=== PATIENT | male | born 1955 | race Asian ===

== ENCOUNTER 2018-06-17 13:57 | Inpatient (IN) | payer BC ==
[~2018-06-17] VITALS: Ht 177.8 cm; Wt 73.0 kg
[2018-06-17 14:07] VITALS: Ht 177.8 cm; Wt 73.0 kg
[2018-06-17] MEDS ORDERED: APAP500 MG PO (15:44)
[2018-06-17] MEDS ORDERED: ASPIR 8181 MG PO (15:44)
[2018-06-17] MEDS ORDERED: DULCOLAX10 M1 RC (15:45)
[2018-06-17] MEDS ORDERED: FERROUS SULFAT325 M2 PO (15:46)
[2018-06-17] MEDS ORDERED: FLEET ENEMA135 ML RC (15:46)
[2018-06-17] MEDS ORDERED: LOV40I SQ (15:46)
[2018-06-17] MEDS ORDERED: KEPPRA500 MG PO (15:47)
[2018-06-17] MEDS ORDERED: IPRATROPIUM (15:47)
[2018-06-17] MEDS ORDERED: LORAZEPAM0.5 MG PO (15:48)
[2018-06-17] MEDS ORDERED: NORCO1 TA2 PO (15:49)
[2018-06-17] MEDS ORDERED: MILK OF MAGNESIA (15:49)
[2018-06-17] MEDS ORDERED: PERCOCET1 TAB PO (15:50)
[2018-06-17] MEDS ORDERED: PROTONIX40 MG PO (15:50)
[2018-06-17] MEDS ORDERED: PULMICORT0.5 MG/2 M NEB (15:50)
[2018-06-17 15:51] LABS: CALCIUM 7.9 mg/dL (8.5-10.1); CARBON DIOXIDE 24.2 mmol/L (21-32); CHLORIDE SERUM 103 mmol/L (98-107); CREATININE SERUM 0.7 mg/dL (0.7-1.3); GFR1 > 60 mL/min; GLUCOSE SERUM 101 mg/dL (74-106); POTASSIUM SERUM 3.5 mmol/L (3.5-5.1); SODIUM SERUM 139 mmol/L (136-145)
[2018-06-17] MEDS ORDERED: SEROQUEL25 MG PO (15:51)
[2018-06-17] MEDS ORDERED: XOPENEX1.25 MG/3 NEB (15:51)
[2018-06-17 15:55] LABS: ALT/SGPT 25 U/L (16-63); AST/SGOT 178 U/L (15-37); BILIRUBIN TOTAL 2.98 mg/dL (0.20-1.00); PHOSPHOROUS 4.1 mg/dL (2.5-4.9); TOTAL PROTEIN, SERUM 6.8 g/dL (6.4-8.2)
[2018-06-17 15:59] LABS: ALBUMIN 2.4 g/dL (3.4-5.0)
[2018-06-17 16:00] LABS: CHOLESTEROL 224 mg/dL (<200); HDL CHOLESTEROL 18 mg/dL (40-60)
[2018-06-17 16:02] LABS: PLATELET COUNT 121 x10^3mcL (130-400); RED CELL DISTRIBUTION WIDTH 28.7 % (11.5-14.5)
[2018-06-17 16:20] LABS: ALKALINE PHOSPHATASE 1742 U/L (46-116)
[2018-06-17 16:21] LABS: BAND NEUTROPHIL 3 % (0-10); BASOPHIL 0 % (0-2); MONOCYTE 6 % (0-7); SEGMENTED NEUTROPHILS 70 % (37-75)
[2018-06-17 16:22] LABS: rbc morphology (normal/abnorm) ABNORMAL (NORMAL); tear drop cell (dacryocyte) 1+
[2018-06-17 16:23] LABS: ovalocyte/elliptocyte 1+
[2018-06-17 17:07] LABS: T3 TOTAL 0.72 ng/mL
[2018-06-17 17:10] LABS: FREE T4 1.1 ng/dL (0.76-1.46)
[2018-06-17 17:31] LABS: CHOLESTEROL/HDL RATIO 11.9; FREE THYROXINE INDEX 1.5 ug/dL (1.4-4.5); T4(THYROXINE) 4.1 ug/dL (4.7-13.3)
[2018-06-17 17:52] LABS: IRON 180 ug/dL (65-170); TOTAL IRON BINDING CAPACITY 126 ug/dL (250-450)
[2018-06-17 17:59] LABS: RED BLOOD CELLS 2.3 M/mm3 (4.52-5.90)
[2018-06-17 18:35] VITALS: BP 118/62
[2018-06-17] MEDS ORDERED: AZOPT10 ML (18:36)
[2018-06-17 20:00] VITALS: BP 144/89
[2018-06-17 22:59] LABS: BASOPHIL % 0.2 % (0-2)
[2018-06-17 23:01] LABS: PLATELET COUNT 104 x10^3mcL (130-400); RED CELL DISTRIBUTION WIDTH 28.1 % (11.5-14.5)
[2018-06-17 23:02] LABS: rbc morphology (normal/abnorm) ABNORMAL (NORMAL)
[2018-06-18 05:11] VITALS: BP 141/92
[2018-06-18 07:09] LABS: CALCIUM 8.1 mg/dL (8.5-10.1); CARBON DIOXIDE 24.6 mmol/L (21-32); CHLORIDE SERUM 104 mmol/L (98-107); CREATININE SERUM 0.6 mg/dL (0.7-1.3); GFR1 > 60 mL/min; GLUCOSE SERUM 113 mg/dL (74-106); PHOSPHOROUS 3.7 mg/dL (2.5-4.9); POTASSIUM SERUM 3.4 mmol/L (3.5-5.1); SODIUM SERUM 140 mmol/L (136-145)
[2018-06-18 07:30] LABS: PLATELET COUNT 109 x10^3mcL (130-400); RED CELL DISTRIBUTION WIDTH 29.5 % (11.5-14.5)
[2018-06-18 09:18] VITALS: BP 163/97
[2018-06-18 11:35] LABS: BAND NEUTROPHIL 5 % (0-10); BASOPHIL 0 % (0-2); METAMYELOCTE 1 % (0-2); MONOCYTE 9 % (0-7); SEGMENTED NEUTROPHILS 75 % (37-75)
[2018-06-18 11:36] LABS: PLATELET MORPHOLOGY PLATELETS DECREASED; rbc morphology (normal/abnorm) ABNORMAL (NORMAL)
[2018-06-18] MEDS ORDERED: TAGRISSO80 MG PO (11:57)
[2018-06-18 17:03] VITALS: BP 140/75
[2018-06-18 20:42] VITALS: BP 134/91
[2018-06-19] VITALS (8 sets, daily range): BP systolic 129–147; BP diastolic 75–97
[2018-06-19 07:11] LABS: CALCIUM 7.7 mg/dL (8.5-10.1); CARBON DIOXIDE 26.1 mmol/L (21-32); CREATININE SERUM 0.6 mg/dL (0.7-1.3); GFR1 > 60 mL/min; GLUCOSE SERUM 97 mg/dL (74-106)
[2018-06-19 07:25] LABS: CHLORIDE SERUM 102 mmol/L (98-107); POTASSIUM SERUM 3.2 mmol/L (3.5-5.1); SODIUM SERUM 138 mmol/L (136-145)
[2018-06-19 08:36] LABS: BASOPHIL % 0.5 % (0-2)
[2018-06-19 09:50] LABS: PLATELET COUNT 90 x10^3mcL (130-400); RED CELL DISTRIBUTION WIDTH 31.8 % (11.5-14.5)
[2018-06-19 10:31] LABS: rbc morphology (normal/abnorm) ABNORMAL (NORMAL)
[2018-06-19 15:08] LABS: BASOPHIL % 0.4 % (0-2)
[2018-06-19 15:30] LABS: PLATELET COUNT 84 x10^3mcL (130-400); RED CELL DISTRIBUTION WIDTH 31.5 % (11.5-14.5)
[2018-06-19 15:43] LABS: rbc morphology (normal/abnorm) ABNORMAL (NORMAL)
[2018-06-19 19:41] LABS: BASOPHIL % 0.4 % (0-2)
[2018-06-19 20:12] LABS: PLATELET COUNT 71 x10^3mcL (130-400); RED CELL DISTRIBUTION WIDTH 29.3 % (11.5-14.5)
[2018-06-20 05:41] VITALS: BP 142/82
[2018-06-20 06:18] LABS: CALCIUM 7.5 mg/dL (8.5-10.1); CARBON DIOXIDE 27.8 mmol/L (21-32); CHLORIDE SERUM 104 mmol/L (98-107); CREATININE SERUM 0.5 mg/dL (0.7-1.3); GFR1 > 60 mL/min; GLUCOSE SERUM 102 mg/dL (74-106); MAGNESIUM 1.8 mg/dL (1.8-2.4); PHOSPHOROUS 3.5 mg/dL (2.5-4.9); POTASSIUM SERUM 3.2 mmol/L (3.5-5.1); SODIUM SERUM 141 mmol/L (136-145)
[2018-06-20 06:56] LABS: PLATELET COUNT 76 x10^3mcL (130-400); RED CELL DISTRIBUTION WIDTH 29.8 % (11.5-14.5)
[2018-06-20 07:50] VITALS: BP 160/132
[2018-06-20 09:00] VITALS: BP 152/97
[2018-06-20 12:04] VITALS: BP 121/79
[2018-06-20 14:05] LABS: BAND NEUTROPHIL 15 % (0-10); BASOPHIL 0 % (0-2); METAMYELOCTE 2 % (0-2); MONOCYTE 9 % (0-7); MYELOCYTE 3 % (0-2); SEGMENTED NEUTROPHILS 49 % (37-75)
[2018-06-20 14:06] LABS: rbc morphology (normal/abnorm) ABNORMAL (NORMAL)
[2018-06-20 14:07] LABS: PLATELET MORPHOLOGY PLATELETS DECREASED
[2018-06-20 16:15] VITALS: BP 142/83
[2018-06-20 20:47] VITALS: BP 131/99
[2018-06-21 05:42] VITALS: BP 148/87
[2018-06-21 06:29] LABS: CALCIUM 7.7 mg/dL (8.5-10.1); CARBON DIOXIDE 24.8 mmol/L (21-32); CHLORIDE SERUM 106 mmol/L (98-107); CREATININE SERUM 0.5 mg/dL (0.7-1.3); GFR1 > 60 mL/min; GLUCOSE SERUM 108 mg/dL (74-106); PHOSPHOROUS 3.5 mg/dL (2.5-4.9); POTASSIUM SERUM 3.5 mmol/L (3.5-5.1); SODIUM SERUM 143 mmol/L (136-145)
[2018-06-21 07:22] LABS: PLATELET COUNT 63 x10^3mcL (130-400); RED CELL DISTRIBUTION WIDTH 30.4 % (11.5-14.5)
[2018-06-21 08:44] VITALS: BP 140/84
[2018-06-21 13:02] LABS: BAND NEUTROPHIL 17 % (0-10); MONOCYTE 8 % (0-7); SEGMENTED NEUTROPHILS 44 % (37-75)
[2018-06-21 13:03] LABS: METAMYELOCTE 2 % (0-2); MYELOCYTE 3 % (0-2); rbc morphology (normal/abnorm) ABNORMAL (NORMAL); schistocyte (helmet cell) 1+
[2018-06-21 13:04] LABS: PLATELET MORPHOLOGY PLATELETS DECREASED
[2018-06-21 16:52] VITALS: BP 127/79
[2018-06-21 21:07] VITALS: BP 147/90
[2018-06-22 05:53] LABS: CALCIUM 8.1 mg/dL (8.5-10.1); CARBON DIOXIDE 26.5 mmol/L (21-32); CHLORIDE SERUM 107 mmol/L (98-107); CREATININE SERUM 0.6 mg/dL (0.7-1.3); GFR1 > 60 mL/min; GLUCOSE SERUM 118 mg/dL (74-106); POTASSIUM SERUM 3.6 mmol/L (3.5-5.1); SODIUM SERUM 146 mmol/L (136-145)
[2018-06-22 06:07] VITALS: BP 149/90
[2018-06-22 07:17] LABS: PLATELET COUNT 66 x10^3mcL (130-400); RED CELL DISTRIBUTION WIDTH 31.8 % (11.5-14.5)
[2018-06-22 09:31] VITALS: BP 147/91
[2018-06-22 09:48] VITALS: BP 149/90
[2018-06-22 11:55] LABS: BAND NEUTROPHIL 16 % (0-10); BASOPHIL 0 % (0-2); METAMYELOCTE 2 % (0-2); MONOCYTE 10 % (0-7); MYELOCYTE 2 % (0-2); SEGMENTED NEUTROPHILS 46 % (37-75)
[2018-06-22 11:56] LABS: PLATELET MORPHOLOGY PLATELETS DECREASED; rbc morphology (normal/abnorm) ABNORMAL (NORMAL)
[2018-06-22 11:58] LABS: schistocyte (helmet cell) 1+
[2018-06-22 12:12] VITALS: BP 140/84
[2018-06-22 16:40] VITALS: BP 109/77
[2018-06-22 20:59] VITALS: BP 148/96
[2018-06-23 04:51] VITALS: BP 138/91
[2018-06-23 06:37] LABS: CALCIUM 7.3 mg/dL (8.5-10.1); CARBON DIOXIDE 25.9 mmol/L (21-32); CHLORIDE SERUM 109 mmol/L (98-107); CREATININE SERUM 0.7 mg/dL (0.7-1.3); GFR1 > 60 mL/min; GLUCOSE SERUM 139 mg/dL (74-106); POTASSIUM SERUM 3.3 mmol/L (3.5-5.1); SODIUM SERUM 146 mmol/L (136-145)
[2018-06-23 08:13] LABS: BASOPHIL % 0.3 % (0-2)
[2018-06-23 08:17] LABS: PLATELET COUNT 57 x10^3mcL (130-400); RED CELL DISTRIBUTION WIDTH 30.1 % (11.5-14.5)
[2018-06-23 08:24] LABS: rbc morphology (normal/abnorm) ABNORMAL (NORMAL); schistocyte (helmet cell) 1+
[2018-06-23 09:57] VITALS: BP 144/91
[2018-06-23 12:51] VITALS: BP 153/88
[2018-06-23 16:45] VITALS: BP 154/90
[2018-06-23 21:10] VITALS: BP 150/97
[2018-06-24 05:09] VITALS: BP 137/88
[2018-06-24 07:30] LABS: CALCIUM 7.8 mg/dL (8.5-10.1); CARBON DIOXIDE 24.9 mmol/L (21-32); CHLORIDE SERUM 108 mmol/L (98-107); CREATININE SERUM 0.7 mg/dL (0.7-1.3); GFR1 > 60 mL/min; GLUCOSE SERUM 134 mg/dL (74-106); POTASSIUM SERUM 3.4 mmol/L (3.5-5.1); SODIUM SERUM 144 mmol/L (136-145)
[2018-06-24 08:10] LABS: PLATELET COUNT 65 x10^3mcL (130-400)
[2018-06-24 08:24] VITALS: BP 149/83
[2018-06-24 10:39] LABS: BAND NEUTROPHIL 3 % (0-10); BASOPHIL 0 % (0-2); MONOCYTE 4 % (0-7); SEGMENTED NEUTROPHILS 89 % (37-75)
[2018-06-24 10:40] LABS: PLATELET MORPHOLOGY PLATELETS DECREASED; rbc morphology (normal/abnorm) ABNORMAL (NORMAL)
[2018-06-24 10:42] LABS: schistocyte (helmet cell) 1+
[2018-06-24 11:54] VITALS: BP 154/101
[2018-06-24 16:31] VITALS: BP 154/88
[2018-06-24 21:51] VITALS: BP 153/98
[2018-06-25 05:04] VITALS: BP 140/88
[2018-06-25 07:40] LABS: CALCIUM 7.4 mg/dL (8.5-10.1); CHLORIDE SERUM 107 mmol/L (98-107); CREATININE SERUM 0.6 mg/dL (0.7-1.3); GFR1 > 60 mL/min; GLUCOSE SERUM 121 mg/dL (74-106); POTASSIUM SERUM 3.6 mmol/L (3.5-5.1); SODIUM SERUM 142 mmol/L (136-145)
[2018-06-25 08:07] VITALS: BP 146/91
[2018-06-25 08:34] VITALS: BP 146/91
[2018-06-25 09:06] LABS: PLATELET COUNT 58 x10^3mcL (130-400)
[2018-06-25 09:28] LABS: ATYPICAL LYMPH 1 %; BAND NEUTROPHIL 7 % (0-10); BASOPHIL 0 % (0-2); MONOCYTE 4 % (0-7); SEGMENTED NEUTROPHILS 83 % (37-75)
[2018-06-25 09:30] LABS: PLATELET MORPHOLOGY PLATELETS DECREASED; acanthocyte (spur cell) 3+; rbc morphology (normal/abnorm) ABNORMAL (NORMAL); schistocyte (helmet cell) 2+
[2018-06-25 12:06] VITALS: BP 128/76
[2018-06-25 16:45] VITALS: BP 113/61
[2018-06-25 21:25] VITALS: BP 145/96
[2018-06-26 05:34] VITALS: BP 163/92
[2018-06-26 06:27] VITALS: BP 126/79
[2018-06-26 06:57] LABS: CALCIUM 7.4 mg/dL (8.5-10.1); CARBON DIOXIDE 24.9 mmol/L (21-32); CHLORIDE SERUM 105 mmol/L (98-107); CREATININE SERUM 0.6 mg/dL (0.7-1.3); GFR1 > 60 mL/min; GLUCOSE SERUM 122 mg/dL (74-106); POTASSIUM SERUM 4.2 mmol/L (3.5-5.1); SODIUM SERUM 137 mmol/L (136-145)
[2018-06-26 07:48] LABS: RED CELL DISTRIBUTION WIDTH 34.3 % (11.5-14.5)
[2018-06-26 07:49] LABS: PLATELET COUNT 63 x10^3mcL (130-400)
[2018-06-26 09:00] VITALS: BP 127/77
[2018-06-26 09:54] VITALS: BP 127/77
[2018-06-26 10:47] LABS: ATYPICAL LYMPH 3 %; BAND NEUTROPHIL 2 % (0-10); BASOPHIL 0 % (0-2); METAMYELOCTE 1 % (0-2); SEGMENTED NEUTROPHILS 86 % (37-75)
[2018-06-26 10:50] LABS: rbc morphology (normal/abnorm) ABNORMAL (NORMAL)
[2018-06-26 10:51] LABS: PLATELET MORPHOLOGY PLATELETS DECREASED
== END 2018-06-26 13:56 | disposition hospice, home (50) | DRG 682 ==
LOC: ED 13:57 → MU 16:20 → DU 16:20 → MU 17:30 → DU 06-18 17:56
PROVIDERS: Emergency Medicine; Family Medicine; Internal Medicine
PROC: 30233N1 Transfusion of Nonautologous Red Blood Cells into Peripheral Vein, Percutaneous Approach (ICD-10-PCS; principal; 2018-06-17)
DX: N17.0 Acute kidney failure with tubular necrosis (principal); J96.00 Acute respiratory failure, unspecified whether with hypoxia or hypercapnia; G93.41 Metabolic encephalopathy; E43 Unspecified severe protein-calorie malnutrition; E78.5 Hyperlipidemia, unspecified; M35.00 Sjogren syndrome, unspecified; H40.9 Unspecified glaucoma; D63.8 Anemia in other chronic diseases classified elsewhere; G90.8 Other disorders of autonomic nervous system; D69.6 Thrombocytopenia, unspecified; E87.6 Hypokalemia; Z85.118 Personal history of other malignant neoplasm of bronchus and lung; Z86.711 Personal history of pulmonary embolism; Z86.73 Personal history of transient ischemic attack (TIA), and cerebral infarction without residual deficits; Z85.05 Personal history of malignant neoplasm of liver; Z85.830 Personal history of malignant neoplasm of bone; Z88.2 Allergy status to sulfonamides; Z68.25 Body mass index [BMI] 25.0-25.9, adult
CPT/HCPCS: 83880; 84439; 92610-GN; 97110-GP; 97530-GP; A9577; J1100; J1630; J1650; J1940; J2060; J2270; J3010; J7030; J7040; J7620; J7626; P9016; Q0092; Q0163